=== PATIENT | female | born 2000 | race Caucasian/White ===

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

== ENCOUNTER → 2021-01-26 | Outpatient (CLI) | payer OTHER ==
--- NOTE | 2021-01-27 08:28 | REP ---
INDICATION: HX CHIARI MALFORMATION. COMPARISON: MR brain 02/21/2016. TECHNIQUE: Sagittal T1 with axial T1, T2, FLAIR, diffusion-weighted imaging and ADC mapping sequence. FINDINGS: No evidence of restricted diffusion to suggest acute infarction. No gradient echo susceptibility to suggest hemorrhage. The ventricles and extra-axial CSF spaces are within normal limits. No mass effect or midline shift. No abnormal fluid collections. Again seen perivascular space within the basal ganglia on the right, unchanged. On the FLAIR images, a few white matter changes are seen in the left frontal lobe, that have evolved since the comparison study of 2015. The patient is status post suboccipital craniectomy for Chiari 1 decompression. There is no evidence of fluid collection or complication. IMPRESSION: 1. 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 2. No ventriculomegaly or abnormality of the white matter tracts and cortex. 3. No infarct, hemorrhage or mass. 4. Slightly increased prominence of white matter changes in the left frontal lobe, is a nonspecific finding of questionable clinical significance. <Electronically signed by Fabián Pérez > 01/27/21 1703
--- NOTE | 2021-01-27 08:32 | REP ---
INDICATION: HX CHIARI MALFORMATION. COMPARISON: MRI brain 01/26/2021, MR brain 02/21/2016. TECHNIQUE: Sagittal T1, T2, STIR, axial T1 and T2 weighted MR images of the cervical spine are obtained. FINDINGS: Status post suboccipital craniectomy for Chiari 1 malformation. As described in the accompanying MRI of the brain, the appearance is unchanged from comparison brain MRI of 2016. There is only mild multilevel degenerative disc disease. Vertebral heights and disc heights are preserved. Disc signals are preserved. On the sagittal T2 weighted images, no significant canal stenosis. Cervical cord is normal in its course, caliber and signal characteristics. No evidence of a syrinx. Axial images are slightly motion limited. On the review of axial images, no significant foraminal stenosis or disc herniation. IMPRESSION: 1. Status post suboccipital craniectomy for a Chiari 1 malformation, stable. 2. Cervical cord is normal in its course, caliber and signal characteristic. No evidence of syrinx. 3. Mild degenerative disc disease without evidence of significant canal or foraminal stenosis or disc herniation. <Electronically signed by Fabián Pérez > 01/27/21 0828
== END ==
LOC: M RAD 16:25
PROVIDERS: ATTEND Neurological Surgery
DX: Z86.69 Personal history of other diseases of the nervous system and sense organs (principal)

== ENCOUNTER 2021-04-17 08:59 | Emergency (ER) | payer OTHER ==
[~2021-04-17] VITALS: Ht 157.5 cm; Wt 92.4 kg
[2021-04-17] MEDS ORDERED: NAPR-837 PO (11:14)
[2021-04-17 11:51] VITALS: BP 149/94
== END 2021-04-17 11:52 | disposition home or self-care (01) ==
LOC: M ED 08:59
DX: S29.012A Strain of muscle and tendon of back wall of thorax, initial encounter (principal); X58.XXXA Exposure to other specified factors, initial encounter; Y92.89 Other specified places as the place of occurrence of the external cause; M25.561 Pain in right knee; F17.210 Nicotine dependence, cigarettes, uncomplicated

== ENCOUNTER → 2021-08-09 | Outpatient (REF) | payer OTHER ==
[~2021-08-09] MED LIST: NAPR-837 PO
[2021-08-09 17:54] LABS: HEMATOCRIT 36.3 % (36.0-47.0); HEMOGLOBIN 12.2 g/dl (12.0-15.5); MEAN CORPUSCULAR HEMOGLOBIN 28.9 pg (27.0-33.0); MEAN CORPUSCULAR HGB CONC 33.6 g/dl (32.0-36.5); PLATELET COUNT, AUTOMATED 349 10^3/uL (150-450); RED BLOOD COUNT 4.22 10^6/uL (4.00-5.40); WHITE BLOOD COUNT 14.2 10^3/uL (4.0-10.0)
[2021-08-09 18:48] LABS: HCG, SERUM QUANTITATIVE 54581 MIU/ML; HEPATITIS B SURFACE ANTIGEN NEGATIVE (NEGATIVE); HEPATITIS C VIRUS ABY INDEX < 0.0 INDEX (<0.8); HIV 1&2 SCREEN CENTAUR NEGATIVE (NEGATIVE)
== END ==
LOC: M LAB REF 16:36
PROVIDERS: ATTEND Advanced Practice Midwife
DX: Z32.01 Encounter for pregnancy test, result positive (principal)